=== PATIENT | male | born 1965 | race Native Hawaiian/Other Pacific Islander ===

== ENCOUNTER 2016-11-21 08:58 | Outpatient (CLI) | payer OTHER ==
[~2016-11-21] VITALS: Ht 175.3 cm; Wt 79.4 kg
[~2016-11-21 08:58] MED LIST: BENICAR HCT1 TA2 PO; FUROSEMIDE20 MG PO
== END 2016-11-21 19:07 | disposition home or self-care (01) ==
LOC: RAD 08:58
PROC: 3E0U33Z Introduction of Anti-inflammatory into Joints, Percutaneous Approach (ICD-10-PCS; principal; 2016-11-21)
PROC: 3E0U33Z Introduction of Anti-inflammatory into Joints, Percutaneous Approach (ICD-10-PCS; 2016-11-21)
DX: M16.11 Unilateral primary osteoarthritis, right hip (principal); M16.12 Unilateral primary osteoarthritis, left hip
CPT/HCPCS: 20610; J3301

== ENCOUNTER 2017-08-14 10:19 | Emergency (ER) | payer OTHER ==
[~2017-08-14] VITALS: Ht 177.8 cm; Wt 183.7 kg
[2017-08-14 10:25] VITALS: TEMP 98
[2017-08-14 11:30] LABS: PLATELET COUNT 276 K/uL (142-355)
[2017-08-14 11:40] LABS: POTASSIUM 4.2 mmol/L (3.6-5.2); SODIUM 138 mmol/L (136-145)
[2017-08-14 14:09] VITALS: BP 142/87
== END 2017-08-14 14:18 | disposition home or self-care (01) ==
LOC: ED 10:19
PROVIDERS: Emergency Medicine
DX: M16.11 Unilateral primary osteoarthritis, right hip (principal); M25.451 Effusion, right hip
CPT/HCPCS: 36415; 80053; 85027; 85651; 96374; 96375; 99284; J1100; J1885

== ENCOUNTER 2018-08-11 13:11 | Outpatient (CLI) | payer OTHER | END 2018-08-11 19:57 | disposition home or self-care (01) | LOC: RAD 13:11 | DX: M25.551 Pain in right hip (principal) ==

== ENCOUNTER 2019-02-19 12:02 | Outpatient (CLI) | payer OTHER ==
[2019-02-19 12:49] LABS: PLATELET COUNT 285 K/uL (142-355)
[2019-02-19 13:39] LABS: POTASSIUM 4.1 mmol/L (3.6-5.2)
== END 2019-02-19 20:33 | disposition home or self-care (01) ==
LOC: LAB 12:02
PROVIDERS: Student in an Organized Health Care Education/Training Program
DX: I10 Essential (primary) hypertension (principal); R06.02 Shortness of breath; E55.9 Vitamin D deficiency, unspecified; E53.8 Deficiency of other specified B group vitamins; N40.0 Benign prostatic hyperplasia without lower urinary tract symptoms; Z79.899 Other long term (current) drug therapy
CPT/HCPCS: 80053; 80061; 82306; 82607; 82746; 83880; 84153; 85027; 85651; 86140

== ENCOUNTER 2019-06-30 12:41 | Outpatient (CLI) | payer OTHER | END 2019-06-30 23:59 | disposition home or self-care (01) | LOC: LAB 12:41 | DX: R31.29 Other microscopic hematuria (principal) | CPT/HCPCS: 81000 ==

== ENCOUNTER 2020-05-12 10:38 | Emergency (ER) | payer OTHER ==
[~2020-05-12] VITALS: Ht 177.8 cm; Wt 217.7 kg
[2020-05-12 10:40] VITALS: TEMP 99.1
[2020-05-12 11:12] LABS: PLATELET COUNT 286 K/uL (142-355)
[2020-05-12 11:26] LABS: POTASSIUM 3.3 mmol/L (3.6-5.2)
[2020-05-12 12:58] VITALS: BP 136/82
== END 2020-05-12 12:58 | disposition short-term general hospital (02) ==
LOC: ED 10:38
DX: I89.0 Lymphedema, not elsewhere classified (principal); E66.01 Morbid (severe) obesity due to excess calories
CPT/HCPCS: 36415; 80053; 85027; 99283

== ENCOUNTER 2021-02-21 11:10 | Outpatient (CLI) | payer OTHER ==
[2021-02-21 11:36] LABS: PLATELET COUNT 259 K/uL (142-355)
== END 2021-02-21 21:03 | disposition home or self-care (01) ==
LOC: LAB 11:10
PROVIDERS: ATTEND Nurse Practitioner
DX: I11.0 Hypertensive heart disease with heart failure (principal); R53.83 Other fatigue; I50.22 Chronic systolic (congestive) heart failure; E53.8 Deficiency of other specified B group vitamins; E55.9 Vitamin D deficiency, unspecified
CPT/HCPCS: 80053; 80061; 81000; 82306; 82607; 83880; 84436; 84443; 84481; 85027

== ENCOUNTER 2021-06-17 10:51 | Inpatient (IN) | payer OTHER ==
[~2021-06-17] VITALS: Ht 177.8 cm; Wt 203.7 kg
[2021-06-17] VITALS (10 sets, daily range): BP systolic 119–197; BP diastolic 58–94; TEMP 97.8
[2021-06-17] MEDS ORDERED: ASPIR-8181 MG PO (11:29)
[2021-06-17] MEDS ORDERED: LORA1TAB17 PO (11:30)
[2021-06-17 12:20] LABS: PLATELET COUNT 188 K/uL (142-355)
[2021-06-17 12:34] LABS: PARTIAL THROMBOPLASTIN TIME 27.3 SECONDS (24.5-33.6)
[2021-06-17 12:57] LABS: POTASSIUM 4.3 mmol/L (3.6-5.2); SODIUM 138 mmol/L (136-145)
[2021-06-18] VITALS (29 sets, daily range): BP systolic 88–145; BP diastolic 2–73; TEMP 97.3
[2021-06-19] VITALS (66 sets, daily range): BP systolic 100–140; BP diastolic 49–77; TEMP 97.2–98.4
[2021-06-19 14:09] LABS: POTASSIUM 3.5 mmol/L (3.6-5.2)
[2021-06-19 14:42] LABS: PLATELET COUNT 194 K/uL (142-355)
[2021-06-20 05:00] VITALS: TEMP 99.9
[2021-06-20 06:03] LABS: PLATELET COUNT 202 K/uL (142-355)
[2021-06-20 06:22] LABS: POTASSIUM 3.6 mmol/L (3.6-5.2)
[2021-06-21 07:36] VITALS: BP 149/89; TEMP 97.4
[2021-06-21 08:33] LABS: POTASSIUM 3.6 mmol/L (3.6-5.2)
[2021-06-21 08:35] LABS: PLATELET COUNT 179 K/uL (142-355)
[2021-06-21 14:00] VITALS: BP 178/81
--- NOTE | 2021-06-21 15:45 | NUR ---
i called the below facilities for ER transfer bed to ICU: [facility] [phone], all on closure. [facility] [phone] at [facility], call back. [facility] [phone], at cap, call back [facility] [phone] at cap, call back [facility] [phone] at cap, call back. [facility] [phone], no icu beds, call back. [facility] [phone] total diversion x 1 week, call back. [facility] [phone] x [phone], total diversion, call back. [facility] [phone], no beds avail, 8 holding in er [facility] [phone] no beds, call back [facility] [phone] x [phone], on full diversion call back. [facility] [phone] no icu beds, 5 holding in ER, call back [facility] [phone] [facility], at cap, call back [place], [place] [phone], on the list but on diversion, call back [place], [place] [phone] no beds, call back. [facility] [phone] black status until 06/25 not accepting external transfers. [facility], [place] [phone] on icu diversion and not accepting out of state transfers, call back. [facility] [phone] on diversion, call back.
[2021-06-21 16:00] VITALS: BP 164/88
[2021-06-21 16:41] LABS: LDL CHOLESTEROL 108.4 mg/dL (0-99*)
[2021-06-21 18:00] VITALS: BP 159/89
[2021-06-21 19:00] VITALS: BP 163/85; TEMP 96.8
[2021-06-22 05:39] LABS: PLATELET COUNT 167 K/uL (142-355)
[2021-06-22 05:48] LABS: POTASSIUM 3.8 mmol/L (3.6-5.2)
[2021-06-22 07:23] VITALS: BP 124/73; TEMP 97.6
[2021-06-22 12:17] VITALS: BP 137/65; TEMP 95.2
[2021-06-22 15:57] VITALS: BP 142/77; TEMP 96.4
[2021-06-22 19:00] VITALS: BP 149/77
[2021-06-22 21:00] VITALS: BP 154/82
[2021-06-22 23:00] VITALS: BP 130/63
[2021-06-23] VITALS (11 sets, daily range): BP systolic 126–168; BP diastolic 64–90; TEMP 97.7–98.4
[2021-06-23 05:04] LABS: PLATELET COUNT 163 K/uL (142-355)
[2021-06-23 05:15] LABS: POTASSIUM 3.8 mmol/L (3.6-5.2)
[2021-06-24] VITALS (8 sets, daily range): BP systolic 124–184; BP diastolic 68–93; TEMP 98.4–98.6
--- NOTE | 2021-06-24 03:52 | NUR ---
PATIENT REMAINS ON SIMV 550/15/+5/PS10/35% AND IS TOLERATING WELL. SPO2 96% AND HR 67. WILL CONTINUE TO MONITOR PATIENT.
[2021-06-24 05:08] LABS: POTASSIUM 3.9 mmol/L (3.6-5.2)
--- NOTE | 2021-06-24 06:25 | NUR ---
LAVAGED AND SUCTIONED PATIENT FOR LARGE AMOUNT OF THICK, CLAROS SECRETIONS. SPO2 99% ON 35%.
--- NOTE | 2021-06-24 08:16 | NUR ---
REPLACED TUBE CARTAGENA. TUBE TAPED 25 AT THE LIP, CENTER ORAL.
[2021-06-25] VITALS (19 sets, daily range): BP systolic 139–180; BP diastolic 67–94; TEMP 97–98.6; Ht 177.8 cm; Wt 203.7 kg
[2021-06-25 05:47] LABS: POTASSIUM 4.6 mmol/L (3.6-5.2)
--- NOTE | 2021-06-25 14:20 | NUR ---
REC'D PT VIA BED FROM ER. PT ON VENT WITH SETTINGS OF TV 550, RATE 15. PEEP OF 3, FIO2 30%. 7.5 ET TUBE 25 AT LIP LINE. PT HAS RT IJ WITH DIPRIVAN @20MCG, VERSED AT 10ML, NS AT 25 ML/HR , CLINIDIX AT 125ML/HR ALL INFUSING VIA PUMP. 16 FR SAUCEDO INTACT WITH APPROX 75 ML OF YELLOW URINE WITH SEDIMENT NOTED. PT NOTED TO HAVE 2+PITTING EDEMA TO BILAT LOWER EXT. PT NOTED TO HAVE SMALL SPLIT IN SKIN UNDER LEFT BREAST FOLD AND ALSO SMALL SPLIT IN SKIN TO RT GROIN FOLD. PT HAS YEAST NOTED TO GROIN AND UNDER BREAST AND GROIN FOLDS. PT CURRENTLY ON NYSTATIN
--- NOTE | 2021-06-25 20:15 | NUR ---
RESTING WITH EYES CLOSED, NO S/S OF DISTRESS NOTED, WILL MONITOR.
--- NOTE | 2021-06-25 23:00 | NUR ---
PT SUCTIONED PO WITH YANKAUER NOTE SOME THIN CLEAR AND THICK YELLOW SECRETIONS NOTED, ALSO SOME OF SECRETIONS COMING OUT OF PT'S MOUTH. MOUTH CARE PROVIDED, NO ACUTE DISTRESS NOTED, RAILS UP, BED IN LOW POSITION.
--- NOTE | 2021-06-25 23:35 | NUR ---
RESPIRATORY AT BEDSIDE AGAIN DEEP SUCTIONING PT, PT BITTING ON ET TUBE, INCREASED DIPRIVAN DRIP TO 25MCG/KG/MIN, WILL MONITOR CLOSELY.
[2021-06-26] VITALS (25 sets, daily range): BP systolic 15–166; BP diastolic 55–80; TEMP 98.1–98.2
--- NOTE | 2021-06-26 00:52 | NUR ---
RESTING WITH EYES CLOSED, NO S/S OF PAIN OR DISTRESS NOTED, RESP RATE 18 NONLABORED REMAINS ON VENT FIO2 30% WITH O2 SAT OF 98%, SAUCEDO PATENT, VITALS BEING MONITORED, FEET AND HANDS ELEVATED ON PILLOWS, HOB ELEVATED, WILL MONITOR, RAILS UP, BED IN LOW POSITION.
--- NOTE | 2021-06-26 03:45 | NUR ---
RESPIRATORY THERAPIST AT BEDSIDE GIVING A NEB TREATMENT. NAD NOTED.
--- NOTE | 2021-06-26 05:25 | NUR ---
RESTING WITH EYES CLOSED, NO S/S OF PAIN OR DISTRESS NOTED, VITALS BEING MONITORED, CENTRAL INTACT TO R CHEST, SAUCEDO PATENT, SKIN WARM AND DRY, HANDS AND FEET ELEVATED ON PILLOWS, HOB ELEVATED, WILL MONITOR, RAILS UP, BED IN LOW POSITION.
[2021-06-26 06:54] LABS: PLATELET COUNT 198 K/uL (142-355)
[2021-06-26 07:19] LABS: POTASSIUM 4.7 mmol/L (3.6-5.2)
--- NOTE | 2021-06-26 07:30 | NUR ---
RESPIRATORY THERAPY HERE DO RESP THERAPY TREATMENT. 16 FR. SAUCEDO CATHETER INTACT. VENT SETTING SIMV -PC, PRESSURE CONTROL 27, PRESSURE SUP -10, PEEP 14, RATE 30, FIO2 70.
--- NOTE | 2021-06-26 08:00 | NUR ---
DEEP SUCTIONING AND MOUTH CARE GIVEN. Pt. RESTING WITH EYES CLOSED.
--- NOTE | 2021-06-26 10:00 | NUR ---
SPOKE WITH FAMILY AND GAVE UPDATE ON PATIENT CONDITION.
--- NOTE | 2021-06-26 10:30 | NUR ---
DEEP SUCTIONING AND MOUTH CARE DONE. NO CHANGE IN VENT SETTING.
--- NOTE | 2021-06-26 12:30 | NUR ---
NO CHANGE IN VENT SETTING. DEEP SUCTIONING AND MOUTH CARE DONE. HAS THICK SECRETION DRAINING FROM MOUTH.
--- NOTE | 2021-06-26 14:38 | NUR ---
Pt. LAYING WITH EYES OPEN WHILE GETTING VERSED AND DIPRIVAN IV LINES CHANGED. IV LINE CHANGED MEDICATION CONTINUED.
--- NOTE | 2021-06-26 15:00 | NUR ---
BED BATH GIVEN. Pt. HAS YELLOWIS DISCHARGE COMING FROM PENIS. HAS REDNESS AND OPEN AREAS GROIN AREA. Dr. SOUSA NOTIFIED. NEW ORDERS RECEIVED.
--- NOTE | 2021-06-26 15:53 | NUR ---
DR. SOUSA SPOKE WITH SON ABOUT TRACHEOTOMY. SON WILL RETURN CALL AFTER TALKING WITH FAMILY.
--- NOTE | 2021-06-26 16:08 | NUR ---
SON BRI CALLED GAVE CONSENT OVER THE PHOME FOR TRACH.
--- NOTE | 2021-06-26 16:25 | NUR ---
GALINA REYNOLDS CALLED TO SPEAK WITH DR. SOUSA STATED LISA DOESN'T UNDERSTAND MEICAL TERMS WILL TELL US. NOTIFIED DR. SOUSA SHE WILL RETURN CALL TO FAMILY.
--- NOTE | 2021-06-26 19:55 | NUR ---
ET TUBE MOVED TO LEFT SIDE OF PT MOUTH.
[2021-06-27] VITALS (12 sets, daily range): BP systolic 118–150; BP diastolic 23–76; TEMP 98.2
[2021-06-27 05:35] LABS: PLATELET COUNT 221 K/uL (142-355)
[2021-06-27 05:48] LABS: POTASSIUM 4.9 mmol/L (3.6-5.2)
--- NOTE | 2021-06-27 07:45 | NUR ---
PT RESTING QUIETLY WITH EYES CLOSED. SEDATED ON VENT. SAUCEDO TO BSD WITH CL YELLOW URINE.
--- NOTE | 2021-06-27 10:20 | NUR ---
DR SOUSA & DR MELISSA IN TO SEE PT.
--- NOTE | 2021-06-27 14:00 | NUR ---
PT CONTINUES TO REST CALMLY ON SEDATION. MOUTH CARE
--- NOTE | 2021-06-27 16:35 | NUR ---
DR SOUSA CALLED TO CK PT'S STATUS. DISCUSSED IV FLUIDS, PT REMAINS CALM.
[2021-06-28] VITALS (20 sets, daily range): BP systolic 103–170; BP diastolic 52–886; TEMP 98.2–99
--- NOTE | 2021-06-28 01:15 | NUR ---
LATE ENTRY: PATIENT WAS GIVEN A BED BATH AND TOLTAL BED CHANGE. PATIENT WAS ALSO GIVEN EXENSIVE MOUTHCARE.
--- NOTE | 2021-06-28 03:13 | NUR ---
RESPIRATORY AT BEDSIDE, PATIENT WAS DEEP INLINE SUCTIONED AN ORALLY SUCTIONED. PATIENT O2 SATS ARE NOW 98%
--- NOTE | 2021-06-28 03:15 | NUR ---
PATIENT IS RESTING COMFORTABLY ON THE VENT, PATIENT PROPFOL WAS TITRATED DOWN TO 20MCG/KG/MIN
--- NOTE | 2021-06-28 05:45 | NUR ---
PATIENT BECAME RESTLESS AND THE PROPOFOL WAS TITRATED BACK 25 MCG/KG/MIN
--- NOTE | 2021-06-28 05:47 | NUR ---
PATIENT HAS NON BLANCHABLE REDNESS IN VARIOUS AREAS ON BACK, NO OPEN WOUNDS NOTED. PATIENT HAS A SKIN TEAR TO THE LEFT PROXIMAL CALF. PATIENT WAS BANDAGEDD WITH A NON ADHESIVE PAD AND CARLITOS WRAP
[2021-06-28 05:48] LABS: PLATELET COUNT 240 K/uL (142-355)
--- NOTE | 2021-06-28 09:00 | NUR ---
PT TO OR VIA BED PER KENN DE LA O CRNA, FREYA BERNAL RN AND LATONYA AMAYA RN.
--- NOTE | 2021-06-28 10:54 | NUR ---
XRAY AT BS TO VERIFY TUBE PLACMENT 1120 INCREASED PROPOFOL TO 8MCG;KG 1126 INCREASE VERSED TO 0.06MG/KG 1225 INCREASE PROPOFOL TO 10MCG/KG 1226 VEC 10MG IVP
--- NOTE | 2021-06-28 11:49 | NUR ---
DECREASED FIO2 TO 90%.
--- NOTE | 2021-06-28 11:55 | NUR ---
1039-PT RETURNED FROM OR TO ICU 1. PER DR COPE, TRACH WAS NOT LONG ENOUGH FOR PT. ETT AT 15CM AT THE TRACH SITE (NECK). VENT WAS CHANGED OUT AT THIS TIME TO ACCOMADTE AN CIRCUIT CARTAGNEA TO ENSURE NO PULLING ON TUBE. AFTER TUBE WAS REPOSITIONED BY DR COPE. TUBE WAS TAPED AND SECURED WITH A MODIFIED ANCHOR FAST CARTAGENA. WILL CONTINUE TO MONITOR.
--- NOTE | 2021-06-28 12:31 | NUR ---
DECREASED FIO2 TO 80% SPO2 AT 100%.
--- NOTE | 2021-06-28 13:41 | NUR ---
GRADUALLY DECREASED FIO2 TO 60%. PT TOLERATING WELL. SPO2 AT 99%.
--- NOTE | 2021-06-28 14:10 | NUR ---
DECREASED FIO2 TO 50%. PT TOLERATING WELL. SPO2 AT 98%.
--- NOTE | 2021-06-28 15:29 | NUR ---
DECREASED FIO2 TO 40%. SPO2 AT 97%.
--- NOTE | 2021-06-28 18:25 | NUR ---
PT BACK FROM OR AT THIS ITME.
--- NOTE | 2021-06-28 18:35 | NUR ---
REC'D PT FROM OR ON PROPOFOL 30MCG/KG, VERSED 0.08MG/KG, VS FOLLOWS: 163/89, HR 91, RR 15, 99% NO PARALYTIC INFUSING AT THIS TIME. VENT SETTINGS: TV 550, RATE OF 15, PEEP OF 5, PRESSURE SUPPORT 10 GAF272% RESP AT BS SMALL AMT OF BLOODY SECREATIONS NOTED FROM MOUTH AT THIS TIME SUCTIONSED PER RESP
--- NOTE | 2021-06-28 18:45 | NUR ---
PT'S FAMILY GIVEN UPDATE FROM OR AND ON PT PER Ruddy MATTHEWS RN.
--- NOTE | 2021-06-28 18:48 | NUR ---
PT RETURNED FROM OR WITH AN 7.0XLT PROXIMAL TRACH SUTURED IN PLACE. CUFF IN TRACH IS INFLATED WITH CONTINUED AIR LEAK THRU MOUTH. PT IS ON SIMV 550, X15, +5, PS-10, 40%. SPO2 AT 99%, HR: 87.
--- NOTE | 2021-06-28 18:54 | NUR ---
1228 VEC DRIP AT 0.08MCG/KG 1230 VERSED INCREASED TO 0.08MG/KG 1335 INCREASE VEC TO 0.1MCG/KG 1338 INCREASE PROPOFOL TO 20MCG/KG 1345 INCREASE VEC TO 0.6MCG/KG 1620 INCREASE PROPOFOL TO 30MCG/KG
--- NOTE | 2021-06-28 20:00 | NUR ---
RESPIRATORY THERAPIST AT BEDSIDE PERFORMING VENT CHECK. NAD NOTED.
[2021-06-29] VITALS (14 sets, daily range): BP systolic 121–146; BP diastolic 64–77; TEMP 98–99
--- NOTE | 2021-06-29 | NUR ---
RESPIRATORY THERAPIST AT BEDSIDE TO PERFORM VENT CHECK. NAD NOTED.
--- NOTE | 2021-06-29 02:00 | NUR ---
RESTING WITH EYES CLOSED, NO S/S OF PAIN OR DISTRESS NOTED, VITALS STABLE AND BEING MONITORED, RESP RATE NONLABORED, TRACH INTACT PT REMAINS ON VENT. SUCTIONED PO AND ALSO PT HAD LOTS OF YELLOW DRAINAGE FROM NOSE FACE CLEANED WITH CLOTH, ARMS ELEVATED ON PILLOWS, WILL MONITOR, RAILS UP, BED IN LOW POSITION.
[2021-06-29 03:59] LABS: PLATELET COUNT 246 K/uL (142-355)
--- NOTE | 2021-06-29 04:08 | NUR ---
RESPIRATORY THERAPIST AT BEDSIDE PERFORMING VENT CHECK. NAD NOTED.
[2021-06-29 04:31] LABS: POTASSIUM 4.8 mmol/L (3.6-5.2)
--- NOTE | 2021-06-29 05:31 | NUR ---
RESTING WITH EYES CLOSED, NO S/S OF PAIN OR DISTRESS NOTED, TRACH INTACT AND PT REMAINS ON VENT, SAUCEDO PATENT, VITALS BEING MONITORED, FEET AND ARMS ELEVATED ON PILLOW, MOUTH CARE PROVIDED, PT SUCTIONED OFTEN PO DUE TO LOTS OF YELLOW SECRECTIONS(ALSO COMING FROM PT'S NOSE). WILL MONITOR CLOSELY, RAILS UP, BED IN LOW POSITION.
--- NOTE | 2021-06-29 06:20 | NUR ---
MOUTH CARE PROVIDED TO PT. LIPS AND MOUTH MOISTURIZED. NAD NOTED. WILL CONTINUE TO MONITOR.
--- NOTE | 2021-06-29 10:12 | NUR ---
SP2 AT 97% ON 40% FIO2. RT DECREASED FIO2 TO 30%. SPO2 NOW AT 96%
--- NOTE | 2021-06-29 11:00 | NUR ---
DECREASED DIPRIVAN TO 25MCG AT THIS TIME.
--- NOTE | 2021-06-29 21:17 | NUR ---
PATIENT NOTED WITH PURULENT GREEN DRAINAGE RUNNING FROM HIS RIGHT NARE. SPECIMEN COLLECTED AND SENT TO THE LAB.
--- NOTE | 2021-06-29 21:19 | NUR ---
PATIENT NOTED WITH LARGE AMOUNT OF COPIOUS GREEN MUCOUS COMING FROM BILATERAL NARES. PATIENT SUCTIONED FROM HIS ORAL MOUTH AND THICK SECRETIONS WERE NOTED WELL. PATIENT IN LINE SUCTIONED. MOUTH AND FACED CLEANED WITH ADULT WIPE.
--- NOTE | 2021-06-29 23:24 | NUR ---
LARGE GREEN COPIOUS DRAINAGE FROM THE RIGHT AND LEFT NARE. PATIENT SUCTIONED AT THIS TIME.
--- NOTE | 2021-06-30 01:15 | NUR ---
ORAL CARE PROVIDED. PATIENT TOLERATED WELL. PATIENT NOTED SLIGHTLY OPENING HIS EYES WHEN CALLING HIS NAME BUT IS STILL NOT ABLE TO FOLLOW COMMANDS.
[2021-06-30 04:57] LABS: PLATELET COUNT 270 K/uL (142-355)
--- NOTE | 2021-06-30 20:21 | NUR ---
PER PATIENT WEANED OFF VERSED DRIP AT THIS TIME. DIPRIVAN 15 MCG GOING TO CENTRAL LINE IN THE RIGHT NECK. PATIENT DOES OPEN HIS EYES AND DOES FOCUS FOR A FEW SECONDS. WILL CONTINUE TO MONITOR.
--- NOTE | 2021-06-30 23:24 | NUR ---
PATIENT NARES SUCTIONED NOTED WITH COPIOUS AMOUNT OF LIGHT GREEN MUCOUS. PATIENT TOLERATED WELL.
[2021-07-01 05:50] LABS: PLATELET COUNT 292 K/uL (142-355)
[2021-07-01 06:42] LABS: POTASSIUM 4.1 mmol/L (3.6-5.2)
--- NOTE | 2021-07-01 07:50 | NUR ---
PATIENT HAS COPIES GREEN TINGED DRAINAGE FROM BOTH NARES. PATIENT HAS BEEN SUCTIONED MULTIABLE TIMES
[2021-07-02 05:42] LABS: PLATELET COUNT 286 K/uL (142-355)
[2021-07-02 06:14] LABS: POTASSIUM 3.6 mmol/L (3.6-5.2)
--- NOTE | 2021-07-02 17:31 | NUR ---
1000 AM DIPROVAN DECREASED FROM 10MCG/KG/MIN TO 5MCG/KG/MIN PT TOLERATED DECREASE. 1130 AM FSBS 162 INSULIN GIVEN PER SLIDING SCALE. 1320PT RECIEVED BED BATH. 1630 PT CALLED ME TO BEDSIDE TOLD ME HE NEEDED TO GET OUT OF HERE BECAUSE HE CANT SLEEP. HE ALSO STATED AT THAT HE FELT LIKE HE WAS ABOUT TO HAVE A PANIC ATTACK. DR RAUSCH WAS NOTIFIED NEW ORDERS WERE GIVEN AND CARRIED OUT 1720 FAMILY CALLED FACILTY AND UPDATE WAS GIVEN. PT ALSO SPOKE TO HIS FAMILY VIA PHONE.
--- NOTE | 2021-07-02 18:15 | NUR ---
TRACH CARE COMPLETED. INNER CANNULA WAS CHANGED. PT HAD A DARK RED DRIED SECTIONS NEARLY COMPLETEY BLOCKING THE INNER CANNULA. SALINE AND GAUZE USED TO CLEAN TRACH AND AREA AROUND TRACH. AFTER TRACH CARE, RT ATTEMPTED A CPAP TRIAL AT 16CM H20. RT COMMUNICATED TO PT THAT HE HAS TO TAKE DEEP BREATHS ON HIS OWN. PT WAS SUCCESSFUL FOR APPROX 4 MINS. THEN VT WERE EXTREMELY LOW TO NOTHING. RT PLACED PT BACK IN SIMV ON ORIGINAL VENT SETTINGS. WILL ATTEMPT ANOTHER TRIAL TOMORROW.
[2021-07-02 20:17] VITALS: TEMP 99
--- NOTE | 2021-07-02 22:20 | NUR ---
PATIENTS FAMILY UPDATEDD ON PATIENTS CURRENT CONDITION
[2021-07-02 23:41] VITALS: BP 129/85; TEMP 99
--- NOTE | 2021-07-03 00:24 | NUR ---
RT AT THE BEDSIDE DOING BREATHING TREATMENT. PATIENT IS CURRENTLY AT 99% ON FIO2 30%.
--- NOTE | 2021-07-03 02:07 | NUR ---
PATIENT IS ALERT AND ORIENTED TO PERSON. PATIENT ATTEMPTS TO MAKE NEEDS KNOWN. SPEECH IS NOT CLEAR PATIENT DOES HAVE A TRACH AT THIS TIME. PATIENT DID STATED THAT HE WANTED TO BE REPOSITIONED TO THIS RIGHT SIDE. 3 PERSON MAX ASSIST TO MOVE PATIENT TO COMFORTABLE POSITION.
[2021-07-03 03:40] VITALS: BP 135/87; TEMP 98.9
[2021-07-03 04:34] LABS: PLATELET COUNT 241 K/uL (142-355)
[2021-07-03 04:51] LABS: POTASSIUM 3.3 mmol/L (3.6-5.2)
--- NOTE | 2021-07-03 07:46 | NUR ---
PATIENT REAJUSTED IN BED
--- NOTE | 2021-07-03 11:37 | NUR ---
1130-PLACED PT ON CPAP AT 16CM H20. SPO2 AT 98%, HR-107, VT- 280-504, RR 16. WILL CONTINUE TO MONITOR PT.
--- NOTE | 2021-07-03 11:56 | NUR ---
RT PLACE PT BACK ON ORIGINAL VENT SETTINGS ON SIMV. PT VT WERE LOW AND PT ACKNOWLEDGED HE WAS GETTING TIRED. WILL ATTEMPT CPAP TRIAL AGAIN THIS AFTERNOON.
--- NOTE | 2021-07-03 19:49 | NUR ---
PT REQUESTING SOMETHING TO DRINK BY MOUTH. EXPLAINED TO PT THAT HE IS NPO AT THIS TIME. APPLIED MOUTH MOISTURIZER TO PT'S LIPS AND MOUTH WITH A SWAB. PT TOLERATED WELL. NAD NOTED.
[2021-07-03 20:00] VITALS: TEMP 99.5
--- NOTE | 2021-07-03 22:45 | NUR ---
PT AWAKE AT THIS TIME WATCHING TV. REMAINS ON VENT. VITAL SIGNS STABLE. WILL CONTINUE TO MONITOR. NAD NOTED.
[2021-07-04] VITALS: TEMP 98.3
--- NOTE | 2021-07-04 00:30 | NUR ---
PT RESTING QUIETLY AT THIS TIME WITH EYES CLOSED IN LOW FOWLERS. VITAL SIGNS REMAIN STABLE. NO SIGNS OR SYMPTOMS OF DISTRESS NOTED. WILL CONTINUE TO MONITOR.
--- NOTE | 2021-07-04 03:53 | NUR ---
PT RESTING WITH HIS EYES CLOSED IN LOW FOWLERS POSITIONS. STILL REMAINS ON VENT. VITAL SIGNS STABLE. NO SIGNS OR SYMPTOMS OF PAIN OR DISTRES. WILL CONTINUE TO MONITOR.
[2021-07-04 04:00] VITALS: TEMP 98.1
[2021-07-04 08:16] LABS: PLATELET COUNT 247 K/uL (142-355)
[2021-07-04 08:37] LABS: POTASSIUM 2.9 mmol/L (3.6-5.2)
--- NOTE | 2021-07-04 09:14 | NUR ---
0905 Pt PLACED ON CPAP TRIAL AT THIS TIME. CPAP 16. HR [id number] 99%. Pt STATED HE WAS COMFORABLE AT THIS TIME. KATHY ROLL SLICING MACHINE TENDER
--- NOTE | 2021-07-04 09:39 | NUR ---
at 0800 per Hyun Adams LPN patients current vent settigns were: SIMV mode, tidal volume 550, rate 15, peep 5, pressure support 10, FIO2 30%.
--- NOTE | 2021-07-04 13:00 | NUR ---
THERAPY AT BESIDE WITH PT PERFORMING PASSIVE ROM EXERCISES
--- NOTE | 2021-07-04 18:18 | NUR ---
TRACH CARE PER RESP AT THIS TIME.
[2021-07-04 20:00] VITALS: TEMP 99
--- NOTE | 2021-07-04 20:02 | NUR ---
1319 AX TEMP 99.5 1550 AX TEMP 99.6
--- NOTE | 2021-07-04 20:30 | NUR ---
awake watching tv with no s/s of distress noted, resp rate nonlabored, trach intact, castillo patent, central intact to r upper chest with no problems noted, ns at 25ml/hr and procal at 50ml/hr, vitals being monitored, pt holding tv remote per self talks some with staff, will monitor closely, rails up, bed in low position.
[2021-07-05 00:01] VITALS: TEMP 98
--- NOTE | 2021-07-05 01:07 | NUR ---
DPT AWAKE AND TALKING
--- NOTE | 2021-07-05 02:30 | NUR ---
PT Awake in bed messing with his covers and pulled heart monitor lead off, reapplied and encouraged pt to keep leads on. when asked pt does state he is at the "hospital". Talks with staff but hard to understand at times due to trach. pt has not slept all night. vitals being monitored, resp rate nonlabored, remains on vent, denies any needs, castillo patent, central intact to r upper chest with ns at 25 and procal at 50ml/hr. will monitor, rails up, bed in low position.
--- NOTE | 2021-07-05 03:00 | NUR ---
PT DISCONNECTEDD VENT FROM TRACH, HAS REMOVEDD MONITORING LEADS. PT INSTURCTED NOT TO DO SO.
[2021-07-05 04:00] VITALS: TEMP 98.6
--- NOTE | 2021-07-05 05:00 | NUR ---
RESTING WITH EYES CLOSED, NO S/S OF PAIN OR DISTRESS NOTED, VITALS BEING MONITORED, WILL MONITOR CLOSELY.
[2021-07-05 05:24] LABS: PLATELET COUNT 188 K/uL (142-355)
[2021-07-05 05:46] LABS: POTASSIUM 3.4 mmol/L (3.6-5.2)
--- NOTE | 2021-07-05 08:00 | NUR ---
Pt. AWAKE AND CONFUSED. Pt. ASKED TO HELP HIM GET LEGS OFF BED. Pt. THINKS HE IS AT [facility].
--- NOTE | 2021-07-05 08:22 | NUR ---
PATIENT PLACED ON CPAP AT 12 CMH2O TO SEE IF TOLRATES.
--- NOTE | 2021-07-05 10:00 | NUR ---
TO TRANSFER TO ER.
--- NOTE | 2021-07-05 13:27 | NUR ---
Pt. TRANSFERRED VIA BED TO ER.
--- NOTE | 2021-07-05 13:31 | NUR ---
Spoke with patients son Lorenzo at [phone] and informed of needing care home physical and respiratory rehab. He understood and said he knew his dad had a long way to go to recover. He had questions about beyond LTAC. University Manager infomed him that he would have to follow his progress with therapy through where he was being placed, and if there was a need for futher therapy that he could discuss care home placement with LTAC.
--- NOTE | 2021-07-07 12:11 | NUR ---
Spoke with Mary Carmen at [facility] in [place] and they can not get a bariatric bed delivered until SaturdayJuly 11 related to the holiday. She said if anythings changes and a bariatric bed becomes available before then she will call and let us know.
[2021-07-07 15:12] LABS: PLATELET COUNT 146 K/uL (142-355)
[2021-07-07 15:57] LABS: POTASSIUM 3.4 mmol/L (3.6-5.2)
--- NOTE | 2021-07-08 08:32 | NUR ---
PLACED PT ON ATC AT 40% AT 12LPM FLUSH.SPO2 AT 100%, HR-91, RR-18. PT MADELYN WELL. WILL CONTINUE TO MONITOR PT FOR DISTRESS. RT WILL GET ABG SHORTLY.
--- NOTE | 2021-07-08 10:16 | NUR ---
RT CALLED TO ROOM TO SX. PT. SX A MODERATE AMOUNT OF PINK AND BROWN SECRETIONS THAT WERE THIN WITH PLUGS. PT HAS PRODUCTIVE COUGH. PT SPO2 AT 98% BUT PT WAS USING SOME ACCESSORY MUSCLES TO BREATH. RT PLACE PT BACK ON CPAP AT 12CM H2O FOR SOME REST. WILL ATTEMPT ATC AGAIN THIS AFTERNOON WITH ABG.
--- NOTE | 2021-07-08 18:03 | NUR ---
APPROX 1430 RT PLACED PT BACK ON ATC AT 40%. PT MADELYN WELL. TRACH CARE COMPLETED AT THIS TIME WELL. LAVAGE AND SX PT FOR A MODERATE AMOUNT OF THICK BROWN SECRETIONS. SPO2 AT 97%. 1800-RT PLACED PT BACK ON CPAP AT 12CM H2O FOR REST FOR THE NIGHT. WILL TRY ATC AGAIN TOMMORROW.
--- NOTE | 2021-07-09 08:29 | NUR ---
PLACED PT ON 40% ATC. SPO2 AT 97%, HR 103. RR-23.
--- NOTE | 2021-07-09 13:00 | NUR ---
PT TRANSFERRED ER TO 1129 VIA HOSPITAL BED UNDER PCU STATUS, PT TOLERATED WELL, BELONGINGS MOVED TO WITH PT, PT ORIENTED TO RM AND CALL LIGHT, PT VERBALIZED UNDERSTANDING, RESP IN WITH PT TO SET UP O2 AT 40% ON AEROSOL TRACH COLLAR AND SUCTION, IV FLUIDS INFUSING TO CENTRAL LINE TO RT IJ WIHTOUT DIFFICULTY, PT NOTED TO HAVE REDDNESS AND BLISTERS TO BILAT LOWER EXT WITH DRESSINGS INTACT, BLISTERS TO UPPER EXT AND GROIN, REDDNESS TO BUTTOCKS WITH SKIN TEARS, PT HAS NONLABORED BREATHING, NO NEEDS AT THIS TIME, CALL LIGHT PLACED WITHIN REACH, WILL CONTINUE TO MONITOR
--- NOTE | 2021-07-09 14:32 | NUR ---
PT IS COMFORTABLE ON 40% ATC. SPO2 AT 96%, HR-90. AEROSOL BOTTLE CHANGED OUT AT THIS TIME. PT SX FOR SMALL AMOUNT OF BROWN THIN SECRETIONS.
[2021-07-09 16:00] VITALS: BP 93/46; TEMP 100
--- NOTE | 2021-07-09 16:28 | NUR ---
PT STILL ON 40% ATC. PT IS COMFORTABLE WITH NO DISTRESS NOTED. WILL CONTINUE TO MONITOR.
--- NOTE | 2021-07-09 18:35 | NUR ---
TRACH CARE COMPLETED AT THIS TIME. NECK BAND CHANGE WITH GAUZE ADDED TO EACH SIDE OF TRACH TO RELIEVE PRESSURE. SKINS TEARS NOTED AT TRACH SITE. REDNESS AND TENDERNESS, SWOLLEN TO AREA AROUND TRACH. INNER CANNULA CHANGED. PT WAS SX FOR SMALL AMOUNT OF BROWN SECRETIONS. PT PLACED ON CPAP FOR THE NIGHT TO REST. PT MADELYN WELL. SPO2 AT 98% HR 100.
[2021-07-09 20:00] VITALS: BP 94/51; TEMP 97.4
[2021-07-10] VITALS: BP 103/61; TEMP 97.8
[2021-07-10 05:14] VITALS: BP 105/57; TEMP 97.5
[2021-07-10 06:23] LABS: PLATELET COUNT 73 K/uL (142-355)
[2021-07-10 06:42] LABS: POTASSIUM 2.9 mmol/L (3.6-5.2)
[2021-07-10 08:00] VITALS: BP 101/60; TEMP 98.7
--- NOTE | 2021-07-10 08:10 | NUR ---
CHANGED PT OVER TO 40% TRACH COLLAR. WILL CONTINUE TO MONITOR.
[2021-07-10 12:00] VITALS: BP 95/55; TEMP 100.2
--- NOTE | 2021-07-10 12:48 | NUR ---
07/10/21 0840 RESP PRESENT IN ROOM FOR BREATHING TREATMENT TOLERATED WELL.CC
--- NOTE | 2021-07-10 13:22 | NUR ---
07/10/21 1320 PHYSICAL THERAPY PRESENT IN ROOM WITH PATIENT,PT STATES HE DOESNOT WANT ANY LUNCH RIGHT NOW.CALL LIGHT WITHIN REACH.CC
--- NOTE | 2021-07-10 15:12 | NUR ---
07/10/[address] HOPE IN WITH PATIENT,FAMILY CAME TO WINDOW TO VISIT WITH PATIENT.CALL LIGHT WITHIN REACH.CC
[2021-07-10 16:00] VITALS: BP 99/54; TEMP 100.6
--- NOTE | 2021-07-10 16:57 | NUR ---
07/10/21 1640 PT AWAKE ALERT LOOKING AROUND TRIES TO TALK SOME BUT IS HARD.DSY TO LOWER LEGS BILATERAL AREAS CLEANED SKIN OPEN NO DRAINAGE NO ODOR.APPROX 1X2 CM IN DIAMETER ON EACH LOWER OUTER EXT PINK IN COLOR.PLACED WITH TELFA THEN WRAPPED WITH CARLITOS.PT ENCOURAGED WHILE LYING IN BED TO ROOM ARMS AND FEET.PT VERBALIZED UNDERSTANDING STARTING MOVING HIS FEET.CALL LIGHT WITHIN REACH.CC 07/10/21 1700 DAUGHTER CALLED TO NURSING STATION TO CHECK ON HER DAD TOLD HIM HE IS DOING FINE AFTER THEY CAME TO VISIT OUTSIDE OF WINDOW.UPDATED ON PT CARE AT THIS TIME.DAUGHTER STATED SHE WILL CALL BACK TOMORROW.CC
--- NOTE | 2021-07-10 18:51 | NUR ---
07/10/21 183 REPOSTIONED IN BED HF SO PT CAN EAT DINNER NAD NOTED.OXYGEN SATURATION 97 PERCENT.CC
[2021-07-10 20:00] VITALS: BP 82/45; TEMP 98.1
[2021-07-11 00:23] VITALS: BP 88/49; TEMP 99.1
--- NOTE | 2021-07-11 04:04 | NUR ---
PATIENT WAS REPOSITIONED IN BED. ASSIST X 4 PEOPLE. PT TOTAL ASSIST. PLANS TO SEND PT TO LT[facility] IN [place]. PT HAD EXTREMELY LARGE SOFT BROWN ESTHER. PT WAS CLEANED. LINENS WERE CHANGED.
[2021-07-11 04:30] VITALS: BP 99/61; TEMP 97.6
--- NOTE | 2021-07-11 05:50 | NUR ---
[facility] IN [place] CALLED. INFORMED OF PT'S STATUS. THE PLAN IS TO TRANSFER PATIENT THIS AFTERNOON.
[2021-07-11 08:00] VITALS: BP 94/48; TEMP 97.5
--- NOTE | 2021-07-11 14:10 | NUR ---
07/11/21 1410 SPOKE WITH PATIENT TOLD HIM [facility] WILL BE CALLING WITH A BED ASSIGNMENT AT 1800 THEN WILL BE TRANSFERRED AT 1000 AM ON 07/12/21.RESP EVEN NONLABORED NAD NOTED.CALL LIGHT WITHIN REACH.CC
[2021-07-11 16:00] VITALS: BP 90/56; TEMP 98.8
[2021-07-11 20:00] VITALS: BP 94/55; TEMP 99.7
[2021-07-12 00:11] VITALS: BP 106/67; TEMP 99.3
[2021-07-12 04:02] VITALS: BP 82/58; TEMP 97.2
[2021-07-12 08:00] VITALS: BP 94/57; TEMP 100
--- NOTE | 2021-07-12 09:23 | NUR ---
PLACED PT ON 40% ATC. SPO2 AT 97%
--- NOTE | 2021-07-12 09:46 | NUR ---
TRACH CARE COMPLETED AT THIS TIME. REDNESS AND TENDERNESS NOTED. PT GRIMACE WITH TRACH CARE. INNER CANNULA CHANGED AT THIS TIME.
--- NOTE | 2021-07-12 12:05 | NUR ---
CALLED AND GAVE REPORT TO NATALEE BARAJAS AT [facility] IN [place], PT BEING TRANSPORTED TO RM 457, PT TRANSFERRED TO STRETCHER WITHOUT DIFFICULTY, OXYGEN HOOKED UP AT 40% AEROSOL TRACH COLLAR, CENTRAL LINE TO R IJ SL AT THIS TIME, BELONGINGS ARE WITH PT
--- NOTE | 2021-07-12 13:13 | NUR ---
[facility] and patient will be admitted to room 457. Central transportation at [phone] will pick patient up around 12 noon to transport to [facility].
== END 2021-07-12 15:34 | DRG 4 ==
LOC: ED 10:51 → EDIP 06-25 13:33 → MED/SURG 06-25 13:33 → PCU 06-25 13:33 → ICU 06-28 17:42 → EDIP 07-05 13:49 → MED/SURG 07-09 12:47
PROVIDERS: Emergency Medicine; Emergency Medicine Emergency Medical Services; Family Medicine; Hospitalist; Internal Medicine Endocrinology, Diabetes & Metabolism; ADMIT Internal Medicine; ATTEND Internal Medicine
PROC: 0T9B70Z Drainage of Bladder with Drainage Device, Via Natural or Artificial Opening (ICD-10-PCS; 2021-06-17)
PROC: 5A1955Z Respiratory Ventilation, Greater than 96 Consecutive Hours (ICD-10-PCS; 2021-06-18)
PROC: 0BH17EZ Insertion of Endotracheal Airway into Trachea, Via Natural or Artificial Opening (ICD-10-PCS; 2021-06-18)
PROC: 05HM33Z Insertion of Infusion Device into Right Internal Jugular Vein, Percutaneous Approach (ICD-10-PCS; 2021-06-18)
PROC: B543ZZA Ultrasonography of Right Jugular Veins, Guidance (ICD-10-PCS; 2021-06-18)
PROC: 0B110F4 Bypass Trachea to Cutaneous with Tracheostomy Device, Open Approach (ICD-10-PCS; principal; 2021-06-30)
DX: U07.1 COVID-19 (principal); J12.82 Pneumonia due to coronavirus disease 2019; J96.01 Acute respiratory failure with hypoxia; Z68.44 Body mass index [BMI] 60.0-69.9, adult; J39.0 Retropharyngeal and parapharyngeal abscess; E87.2 Acidosis; Z99.81 Dependence on supplemental oxygen; E66.01 Morbid (severe) obesity due to excess calories; I10 Essential (primary) hypertension; G47.33 Obstructive sleep apnea (adult) (pediatric); E87.6 Hypokalemia; E83.42 Hypomagnesemia; R13.12 Dysphagia, oropharyngeal phase; R26.81 Unsteadiness on feet; M62.81 Muscle weakness (generalized); F45.8 Other somatoform disorders
CPT/HCPCS: 31500; 36415; 36558; 36591; 36600; 51702; 80048; 80053; 80061; 82550; 82805; 83735; 83880; 84100; 84484; 85027; 85379; 85610; 85730; 87070; 87077; 87186; 87635; 93005; 94002; 94003; 94640; 94660; 94664; 94760; 96360; 96365; 96366; 96372; 96375; 96376; 99285; C1768; J0456; J1100; J1450; J1650; J1815; J1940; J1956; J2060; J2250; J2270; J2543; J2704; J2920; J2930; J3475; J3480; J3490; P9047; U0003

== ENCOUNTER 2022-05-18 11:12 | Outpatient (CLI) | payer OTHER ==
[~2022-05-18 11:12] MED LIST changes: +ASPIR-8181 MG PO; +LORA1TAB17 PO
[2022-05-18 11:37] LABS: PLATELET COUNT 218 K/uL (142-355)
== END 2022-05-18 20:53 | disposition home or self-care (01) ==
LOC: LAB 11:12
PROVIDERS: ATTEND Family Medicine
DX: I50.22 Chronic systolic (congestive) heart failure (principal); J96.21 Acute and chronic respiratory failure with hypoxia; E66.01 Morbid (severe) obesity due to excess calories
CPT/HCPCS: 80053; 83880; 85027